=== PATIENT | male | born 1995 | race Caucasian/White ===

== ENCOUNTER 2016-10-13 14:10 | Emergency (ER) | payer BC ==
[2016-10-13 14:19] VITALS: BP 149/81
[2016-10-13] MEDS ORDERED: Lidocaine 1% 50 ML MDV INJECT ONE (14:32)
--- NOTE | 2016-10-13 14:59 | EDM.PDOC ---
ED HPI GENERAL MEDICAL PROBLEM - General Chief Complaint: Upper Extremity Injury/Pain Stated Complaint: [facility] Time Seen by Provider: 10/13/16 14:23 Source of Information: Reports: Patient History Limitations: Reports: No Limitations - History of Present Illness INITIAL COMMENTS - FREE TEXT/NARRATIVE: Patient is a 21 year old male who presents to the E.D. complaining of a laceration to the tip of the left pinky finger. Patient was utilizing a post hole hammer and accidentally got his finger in between the post and hammer deal injuring his finger. Bleeding controlled with direct pressure. Pain is minimal. Tetanus status is up to date. 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, Other (see below) Other Treatments FABRICATING MACHINE OPERATOR: dilaudid left pinkie finger Pain Score (Numeric/FACES): 2 - Related Data Allergies Allergy/AdvReac Type Severity Reaction Status Date / Time No Known Allergies Allergy Verified 10/13/16 14:19 Home Meds: Home Meds Acetaminophen/HYDROcodone [Plover 325-5 MG] 1 tab PO Q6H PRN #5 tablet 10/13/16 [ Rx] Cephalexin [Keflex] 500 mg PO Q6HR #28 cap 10/13/16 [Rx] Past Medical History - Past Health History Medical/Surgical History: Denies Medical/Surgical History Social & Family History - Family History Family Medical History: Noncontributory - Tobacco Use Smoking Status *Q: Never Smoker Second Hand Smoke Exposure: No - Caffeine Use Caffeine Use: Reports: Coffee - Recreational Drug Use Recreational Drug Use: No Review of Systems - Review of Systems Review Of Systems: See Below Skin: Reports: Wound Neurological: Denies: Numbness, Tingling ED EXAM, GENERAL - Physical Exam Exam: See Below Exam Limited By: No Limitations General Appearance: Alert, WD/WN, No Apparent Distress Ears: Hearing Grossly Normal Nose: Normal Inspection Throat/Mouth: Normal Voice, No Airway Compromise Neck: Normal Inspection, Supple Respiratory/Chest: No Respiratory Distress, No Accessory Muscle Use Cardiovascular: Normal Peripheral Pulses, Regular Rate, Rhythm Peripheral Pulses: 2+: Radial (L) Extremities: Other (Left pinky finger: partial avulsion of the nail from nailbed. Bleeding present. No n/t. Able to extend and flex the finger against resistance. ) Neurological: Alert, Oriented, CN II-XII Intact, Normal Cognition, No Motor/ Sensory Deficits Psychiatric: Normal Affect, Normal Mood Skin Exam: Warm, Dry ED TRAUMA EXTREMITY PROCEDURES - Laceration/Wound Repair Left Finger Lac/Wound Length In cm: 0.5 (nail bed reattached with two sutures. ) Appearance: Subcutaneous, Clean Distal NVT: Neuro & Vascular Intact, No Tendon Injury Anesthetic Type: Digital Local Anesthesia - Lidocaine (Xylocaine): 1% Plain Local Anesthetic Volume: Other (8) Skin Prep: Chlorhexidine (Hibiciens), Saline, Sterile Drape Exploration/Debridement/Repair: Wound Explored, In a Bloodless Field, Explored to Base, No Foreign Material Found Closed With: Sutures Suture Size: 4-0 # of Sutures: 4 Suture Type: Prolene, Interrupted, Simple Drain Placement: No Sterile Dressing Applied: Nurse Tetanus Status Addressed: Yes Complications: No Course - Vital Signs Last Recorded V/S: Last Vital Signs Temp 97.4 F 10/13/16 14:13 Pulse 68 10/13/16 14:13 Resp 18 10/13/16 14:13 BP 149/81 H 10/13/16 14:13 Pulse Ox 99 10/13/16 14:13 - Orders/Labs/Meds Orders: Active Orders 24 hr Category Date Time Status Fingers Fifth Digit Lt F4 [CR] Stat Exams 10/13/16 14:33 Taken Cephalexin [Keflex] Med 10/13/16 15:43 Once 500 mg PO ONETIME ONE Meds: Medications Discontinued Medications Generic Name Dose Route Start Last Admin Trade Name Freq PRN Reason Stop Dose Admin Lidocaine HCl 50 ml 10/13/16 14:32 10/13/16 14:36 Xylocaine 1% INJECT 10/13/16 14:33 50 ml ONETIME ONE Administration - Re-Assessments/Exams Free Text/Narrative Re-Assessment/Exam: Ordered lidocaine 1% and x-ray of the left pinky finger. X-ray reviewed with no acute bony abnormalities. Wound closed with no complications. Discharge home with instructions as documented. Departure - Departure Time of Disposition: 15:44 Disposition: Home, Self-Care 01 Condition: Good Clinical Impression: Nailbed laceration, finger Qualifiers: Encounter type: initial encounter Qualified Code(s): S61.319A - Laceration without foreign body of unspecified finger with damage to nail, initial encounter - Discharge Information Prescriptions: Cephalexin [Keflex] 500 mg PO Q6HR #28 cap Acetaminophen/HYDROcodone [Plover 325-5 MG] 1 tab PO Q6H PRN #5 tablet PRN Reason: Pain (Severe 7-10) Instructions: Crush Injury, Fingers or Toes, [id number], Cast or Splint Care , [id number] Referrals: [facility] [Primary Care Provider] - Forms: ED Department Discharge Additional Instructions: Leave dressing in place until tomorrow morning. Cleanse site twice daily with soap and water, pat dry, reapply triple antibiotic ointment. Keep area clean and dry. Take Keflex 500 mg 3 times a day for 7. For pain take Tylenol 650 mg every 6 hours and ibuprofen 600 mg every 6 hours in alternating fashion. Elevate the affected extremity to reduce swelling and pain. Place ice to the affected finger 4 times daily, 30 laceration, do not place ice directly on the skin. Refrain from any activities that require utilization the left achy finger until sutures are removed. Wear splint as needed to protect the distal phalanx. Follow-up with your provider in 10 days to have sutures removed. Return to ED for any new or worsening symptoms. For severe pain not managed with the Tylenol and ibuprofen take Plover one tablet every 6 hours as needed. No driving while taking this medication. - My Orders Last 24 Hours: My Active Orders 10/13/16 14:33 Fingers Fifth Digit Lt F4 [CR] Stat 10/13/16 15:43 Cephalexin [Keflex] 500 mg PO ONETIME ONE - Assessment/Plan Last 24 Hours: My Active Orders 10/13/16 14:33 Fingers Fifth Digit Lt F4 [CR] Stat 10/13/16 15:43 Cephalexin [Keflex] 500 mg PO ONETIME ONE
[2016-10-13] MEDS ORDERED: Cephalexin 500 MG Cap PO ONE (15:43)
--- NOTE | 2016-10-15 17:54 | CR ---
Left fifth finger: Four views of the left fifth finger were obtained. Soft tissue injury identified distally. Finger is held in flexion which limits details. No discrete fracture or other abnormality is appreciated. Impression: 1. Soft tissue swelling. 2. Slightly limited study due to continued finger flexion. 3. No acute bony abnormality is definitely appreciated. Diagnostic code #2
== END 2016-10-13 16:05 | disposition home or self-care (01) ==
LOC: JD.ED 14:10
DX: S61.217A Laceration without foreign body of left little finger without damage to nail, initial encounter (principal)
CPT/HCPCS: 12001; 73140; 99284; A9270; 64450; 99283-25

== ENCOUNTER 2021-10-11 08:33 | Emergency (ER) | payer OTHER, BC ==
[2021-10-11] MEDS ORDERED: propofoL 100 ML ONE (08:44)
[2021-10-11] MEDS ORDERED: Rocuronium 50 MG/5 ML Vial ONE (08:45)
[2021-10-11] MEDS ORDERED: fentaNYL 100 MCG/2 ML SDV ONE (08:45)
[2021-10-11] MEDS ORDERED: Midazolam 1 MG/ML 5 ML SDV ONE (08:45)
[2021-10-11] MEDS ORDERED: Ketamine 500 mg/10 ML MDV ONE (08:45)
[2021-10-11] MEDS ORDERED: Sodium Chloride 0.9% 10 ML Syringe FLUSH PRN (08:48)
[2021-10-11] MEDS ORDERED: Lactated Ringers 1,000 ML IV SCH ×2 (09:00→09:45)
[2021-10-11] MEDS ORDERED: HYDROmorphone 1 MG/ML Syringe ONE ×2 (09:08→10:20)
[2021-10-11] MEDS ORDERED: Midazolam 1 MG/ML 5 ML SDV IVPUSH ONE (09:17)
[2021-10-11] MEDS ORDERED: Rocuronium 50 MG/5 ML Vial IVPUSH ONE (09:17)
[2021-10-11 09:25] LABS: ESTIMATED GFR 78 mL/min (>60)
[2021-10-11] MEDS ORDERED: Lactated Ringers 1,000 ML IV ONE (09:40)
[2021-10-11] MEDS ORDERED: HYDROmorphone 1 MG/ML Syringe IVPUSH ONE (10:19)
[2021-10-11 10:37] VITALS: BP 115/55; PULSE 107
[2021-10-11 11:20] LABS: CORONAVIRUS COVID-19 NAA NEGATIVE (NEGATIVE)
== END 2021-10-11 12:08 ==
LOC: JD.ED 08:33
DX: T20.311A Burn of third degree of right ear [any part, except ear drum], initial encounter (principal); T20.312A Burn of third degree of left ear [any part, except ear drum], initial encounter; T21.34XA Burn of third degree of lower back, initial encounter; T22.311A Burn of third degree of right forearm, initial encounter; T22.312A Burn of third degree of left forearm, initial encounter; Z20.822 Contact with and (suspected) exposure to COVID-19; W40.1XXA Explosion of explosive gases, initial encounter
CPT/HCPCS: 0241U; 31500; 36415; 36600; 43752; 51702; 71045; 80053; 82803; 85025; 96361; 96374; 96375; 99285; J1170; J2250; J2704; J3010; J3490; J7120; 99291